=== PATIENT | female | born 1925 | race Caucasian/White ===

== ENCOUNTER 2016-07-25 07:01 | Inpatient (IN) | payer OTHER, MEDICARE ==
[~2016-07-25] VITALS: Ht 165.1 cm; Wt 54.4 kg
[~2016-07-25 07:01] MED LIST: ADVAIR 250-501 EACH INH; ATIVAN1 MG PO; CARDIZEM CD240 M1 PO; DILTIAZEM 24HR180 MG PO; DOCUSATE SODIU100 MG PO; ELIQUIS2.5 M1 PO; LEXAPRO 20MG M20 MG PO; MEDROL DOSEPAK1 PAC PO; OMEPRAZOLE20 M2 PO; PERCOCET 325 MG1 TA2 PO; PREDNISONE10 M2 PO; PRILOSEC10 M2 PO; ROBITUSSIN W/CO10 ML PO; SPIRIVA 18 MCG18 MCG INH; SYNTHROID25 MCG PO; VALSARTAN AND H1 TA1 PO; VITAMIN D1000 IU PO; ZITHROMAX Z-PA250 M1 PO; ZOLOFT50 M1 PO
--- NOTE | 2016-07-25 07:14 | ED UPPER/LOWER EXTREMITY COMPL ---
History of Present Illness General Chief Complaint: Fall Stated Complaint: FALL/AVULSION Source: patient, old records, EMS Exam Limitations: no limitations Vital Signs & Intake/Output Vital Signs & Intake/Output Vital Signs Date Time Temp Pulse Resp B/P B/P Pulse O2 O2 Flow FiO2 Mean Ox Delivery Rate 07/25 1744 99.0 101 18 143/78 95 Room Air 07/25 1404 97.0 78 16 121/76 97 Room Air 07/25 1150 97.2 84 16 141/74 96 Room Air 07/25 0916 98.2 90 18 146/95 98 Room Air 07/25 0705 98.8 78 18 137/69 96 Room Air Allergies Coded Allergies: Sulfa (Sulfonamide Antibiotics) (UNKNOWN 02/03/16) Reconcile Medications Apixaban (Eliquis) 2.5 MG TABLET 1 TAB PO BID ANTICOAG (Reported) Diltiazem HCl (Cardizem Cd) 240 MG CAP.ER.24H 240 MG PO DAILY AFIB Levothyroxine Sodium (Synthroid) 25 MCG TABLET 2 TAB PO DAILY AC THYROID ( Reported) Sertraline HCl (Zoloft) 50 MG TABLET 3 TAB PO DAILY DEPRESSION (Reported) Tiotropium Milfay (Spiriva) 18 MCG CAP.W.DEV 1 CAP INH DAILY COPD (Reported) Valsartan/Hydrochlorothiazide (Valsartan-Hctz 320-12.5 MG Tab) 320 MG-12.5 MG TABLET 1 TAB PO DAILY HEART (Reported) Triage Note: 89 YO FEMALE ANDRE FROM HOME. PT STATES SHE WAS WALKING DOWN THE STAIRS THIS AM AND SLIPPED AND FELL DOWN APPROX 13 STEPS. STATES SHE SCRAPED THE FRONT OF HER R UNGER. SKIN NOTED TO BE PEELED OFF OF R UNGER DOWN TO THE BONE. MD TO BEDSIDE FOR EVAL. PT ABLE TO MOVE R FOOT, +PMS TO EXTREMTY. STATES LAST TETANUS SHOT WAS LAST YEAR. BLEEDING CONTROLLED AT THIS TIME. STATES PAIN 3/10 AT THIS TIME. DENIES HEAD STRIKE. STATES TAKES ELIQUIS DAILY. Triage Nurses Notes Reviewed? yes HPI: Patient slipped on wet stairs and fell forward. Patient states that she fell down approximately 4 stairs. Patient denies hitting her head. Patient states that her right unger was caught underneath her and it dried over each stair. There was no loss of consciousness. Patient denies any injury except a deep laceration to her right unger. Patient states that there is a burning pain which she rates as 6 out of 10. There is no radiation. There are no aggravating or mitigating factors. Patient denies any neck pain. There is no blurry vision. There is no nausea or vomiting. There is no wrist or hand pain. Past History Travel History Traveled to [place] past 21 day No Medical History Any Pertinent Medical History? see below for history Neurological: NONE EENT: cataracts Cardiovascular: AFIB, hypertension Respiratory: COPD Gastrointestinal: peptic ulcer disease colonic polyps H. pylori Hepatic: NONE Renal: NONE Musculoskeletal: chronic back pain Psychiatric: NONE Endocrine: hypothyroidism Blood Disorders: NONE Cancer(s): NONE CAR WASH ATTENDANT/Reproductive: NONE Other Medical Hx: Lyme disease, herpes zoster, History of MRSA: No History of VRE: No History of CDIFF: No Pneumonia Vaccine: 03/10/14 Influenza Vaccine: 03/10/14 Surgical History Surgical History: aortic aneurysm repair, tonsils and adenoids, and lumbar disc. laparascopic incisional hernia repair following repair of splenic artery aneurysm tonsillectomy cervical diskectomy varicose vein stripping Psychosocial History Who do you live with Patient/Self Services at Home None What is your primary language Guamanian Tobacco Use: Never used ETOH Use: denies use Illicit Drug Use: denies illicit drug use Family History Family History, If Any: SON, ; Cause: Renal cancer. MOTHER, ; Cause: Uremia. FH: diabetes mellitus FH: HTN (hypertension) SISTER, ; Cause: Uremia. Hx Contributory? No Review of Systems Review of Systems Constitutional: Reports: no symptoms. EENTM: Reports: no symptoms. Respiratory: Reports: no symptoms. Cardiovascular: Reports: no symptoms. Gastrointestinal/Abdominal: Reports: no symptoms. Genitourinary: Reports: no symptoms. Musculoskeletal: Reports: see HPI. Skin: Reports: see HPI. Neurological/Psychological: Reports: no symptoms. Hematologic/Endocrine: Reports: no symptoms. Immunological: Reports: no symptoms. All Other Systems: Reviewed and Negative Physical Exam Physical Exam General Appearance: well developed/nourished, alert, awake, anxious, mild distress Head: atraumatic, normal appearance Eyes: Bilateral: PERRL, EOMI. Ears, Nose, Throat: normal pharynx, normal ENT inspection, hearing grossly normal Neck: normal inspection, supple, full range of motion, no midline tenderness Cardiovascular/Respiratory: normal breath sounds, normal peripheral pulses, no respiratory distress, irregularly irregular Peripheral Pulses: 3+ tibialis posterior (R), 3+ tibialis posterior (L), 3+ dorsalis pedis (R), 3+ dorsalis pedis (L) Gastrointestinal: SOFT, NONTENDER, NONDISTENDED Back: normal inspection, normal range of motion, no vertebral tenderness Shoulder Left: normal range of motion, normal inspection Shoulder Right: normal range of motion, normal inspection Elbow Left: normal range of motion, normal inspection Elbow Right: normal range of motion, normal inspection Hand Left: normal inspection, normal range of motion Hand Right: normal inspection, normal range of motion Leg Right: SEE BELOW Hip Left: normal range of motion, normal inspection Hip Right: normal range of motion, normal inspection Knee Left: normal range of motion, normal inspection Knee Right: normal range of motion, normal inspection Foot Left: normal inspection, normal range of motion Foot Right: normal inspection, normal range of motion Neurologic/Tendon: normal sensation, normal motor functions, normal tendon functions, no evidence tendon injury Skin: normal color, warm/dry Lymphatic: no anterior cervical tala Comments: Right anterior tibial area shows a large skin flap all the way down to the tendon sheath. The laceration is through the subcutaneous tissue. Her anterior tendon sheath is exposed. There is no defect in the sheath. She has normal movement and sensation distally. Pulses are intact. The anterior tibial area is wide open and exposed. Progress Differential Diagnosis: contusion, fracture, tendon injury Plan of Care: Orders Procedure Date/time Status Regular Diet 07/26 B Active Regular Diet 07/25 D Complete Saline Lock 07/25 1654 Active Misc Message 07/25 1654 Active ED Holding Orders 07/25 1654 Active Vital Signs 07/25 1654 Active Activity/Ambulation 07/25 1654 Active Code Status 07/25 1654 Active Patient Data 07/25 1653 Active Admit to inpatient 07/25 1651 Active Intake & Output 07/25 1632 Active CASE MANAGEMENT CONSULT 07/25 1355 Active PARTIAL THROMBOPLASTIN TIME 07/25 0812 Complete PROTHROMBIN TIME 07/25 0812 Complete COMPREHENSIVE METABOLIC PANEL 07/25 0812 Complete CBC WITHOUT DIFFERENTIAL 07/25 0812 Complete EKG 07/25 0812 Active TYPE & SCREEN (NOT X-MATCH) 07/25 0812 Complete House Staff 07/25 UNK Active Current Medications Sig/Norbert Start time Last Medication Dose Stop Time Status Admin Diltiazem HCl 240 MG DAILY 07/26 1000 AC (Cardizem CD) Hydrochlorothiazide 12.5 MG DAILY 07/26 1000 AC (Hydrodiuril) Losartan Potassium 50 MG DAILY 07/26 1000 AC (Cozaar) Sertraline HCl 150 MG DAILY 07/26 1000 AC (Zoloft) Tiotropium Milfay 1 PUF DAILY 07/26 1000 AC (Spiriva) Levothyroxine Sodium 0.05 MG DAILY AC 07/26 0700 AC (Synthroid) Cefazolin Sodium 1,000 MG IQ8 07/26 0000 AC (Kefzol-Ancef Inj) Apixaban 2.5 MG BID 07/25 2200 AC (Eliquis) Polyethylene Glycol 17 GM DAILY 07/25 1837 AC (Miralax) Bisacodyl 5 MG DAILY 07/25 183 AC (Dulcolax) Morphine Sulfate 2 MG Q4P PRN 07/25 1800 AC 07/25 (Morphine) 1750 Laboratory Tests 07/25/16 0853: PT 14.0 H, INR 1.34 H, APTT 32 07/25/16 0815: Anion Gap 10, Estimated GFR 59 L, BUN/Creatinine Ratio 22.2, Glucose 85, Calcium 8.9, Total Bilirubin 0.8, AST 29, ALT 38, Alkaline Phosphatase 58, Total Protein 5.8 L, Albumin 3.9, Globulin 1.9, Albumin/Globulin Ratio 2.1, CBC w Diff NO MAN DIFF REQ, RBC 4.12 L, MCV 96.1, MCH 32.3 H, RDW 13.1, MPV 9.2, Gran % 64.4, Lymphocytes % 25.2, Monocytes % 7.8, Eosinophils % 2.0, Basophils % 0.6, Absolute Granulocytes 4.6, Absolute Lymphocytes 1.8, Absolute Monocytes 0.6 , Absolute Eosinophils 0.1, Absolute Basophils 0, PUBS MCHC 33.7 Diagnostic Imaging: Viewed by Me: Radiology Read. Discussed w/RAD: Radiology Read. Radiology Impression: PATIENT: ROGER ZAPATA PRESENT AGE: 89 PATIENT ACCOUNT NO: [id number] : [birth year] LOCATION: [facility] ORDERING PHYSICIAN: NALDO BILLINGSLEY MD SERVICE DATE: 07/25/16 EXAM TYPE: RAD - [id number], RIGHT EXAMINATION: XR TIBIA AND FIBULA, RIGHT CLINICAL INFORMATION: Soft tissue injury COMPARISON: None TECHNIQUE: AP and lateral views of the right tibia and fibula were obtained. FINDINGS: Large skin defect of the anterior lower leg with no radiopaque foreign body or underlying osseous abnormality. No fracture. IMPRESSION: Anterior skin defect with no fracture. DICTATED BY: ATTILA HORAN MD DATE/TIME DICTATED:07/25/16747 REGULATORY COMPLIANCE MANAGER:COLMENARES DATE/TIME TRANSCRIBED:07/25/16747 CONFIDENTIAL, DO NOT COPY WITHOUT APPROPRIATE AUTHORIZATION. <Electronically signed in Other Vendor System> SIGNED BY: ATTILA HORAN MD 07/25/16752, PATIENT: ROGER ZAPATA PRESENT AGE: 89 PATIENT ACCOUNT NO: [id number] : [birth year] LOCATION: [facility] ORDERING PHYSICIAN: NALDO BILLINGSLEY MD SERVICE DATE: 07/25/16 EXAM TYPE: CAT - CT HEAD WO IV CONTRAST EXAMINATION: CT HEAD WITHOUT CONTRAST CLINICAL INFORMATION: Fall. On Eloquis. COMPARISON: None TECHNIQUE: Contiguous axial imaging was performed from the skull base to vertex without intravenous administration of contrast. DLP: 566.9 mGy-cm FINDINGS: There is no evidence of acute intracranial hemorrhage or territorial infarction. No abnormal mass effect or midline shift is seen. Li to white matter differentiation is well preserved. No extra-axial fluid collections are identified. The ventricles are normal in size. A few foci of hypoattenuation in the subcortical and periventricular white matter are present, most commonly attributable to chronic microangiopathic changes. Calcific atherosclerosis is present within the cavernous and supraclinoid segments of the internal carotid arteries. The osseous structures and soft tissues are normal. A trace amount of dependent mucus is present within the sphenoid sinus. Paranasal sinuses are otherwise clear. Mastoid air cells are clear. IMPRESSION: No acute intracranial pathology. Mild white matter disease, most compatible with chronic microangiopathic changes. DICTATED BY: LUDA MAX MD DATE/TIME DICTATED:07/25 REGULATORY COMPLIANCE MANAGER:COLMENARES DATE/TIME TRANSCRIBED:07/25/16754 CONFIDENTIAL, DO NOT COPY WITHOUT APPROPRIATE AUTHORIZATION. <Electronically signed in Other Vendor System> SIGNED BY: LUDA MAX MD 07/25/16 0809 Comments: Discussed with Dr. Calderon. Surgical PA will evaluate the patient. Patient is going to require an extensive washout Dr. Calderon is unavailable to take her to the operating room until this evening and requests plastics consultation. Dr. Willis has been consult it and he will see her between 12 and 12:30 today. Departure Departure Disposition: STILL A PATIENT Condition: Stable Clinical Impression Primary Impression: Intractable pain Secondary Impressions: Gait instability, Leg laceration Referrals: JULI CALDERON MD (PCP/Family) Departure Forms: Customer Survey General Discharge Information Admission Note Spoke With: ROHAN WALKER M.D Documentation of Exam: Documentation of any treatments & extenuating circumstances including Concerns Regarding Discharge (functional status, medication knowledge or non-compliance, living conditions, etc.) that warrant an admission rather than observation: [ Parenteral pain control, IV antibiotics, physical therapy, anticipate short-term rehabilitation] Critical Care Note Critical Care Note Critical Care Time: mins: (30 min)
--- NOTE | 2016-07-25 07:14 | NUR ---
89 YO FEMALE BIBA FROM HOME. PT STATES SHE WAS WALKING DOWN THE STAIRS THIS AM AND SLIPPED AND FELL DOWN APPROX 13 STEPS. STATES SHE SCRAPED THE FRONT OF HER R EWING. SKIN NOTED TO BE PEELED OFF OF R EWING DOWN TO THE BONE. MD TO BEDSIDE FOR EVAL. PT ABLE TO MOVE R FOOT, +PMS TO EXTREMTY. STATES LAST TETANUS SHOT WAS LAST YEAR. BLEEDING CONTROLLED AT THIS TIME. STATES PAIN 3/10 AT THIS TIME. DENIES HEAD STRIKE. STATES TAKES ELIQUIS DAILY.
--- NOTE | 2016-07-25 07:23 | NUR ---
IV EST. PT TO XRAY VIA STRETCHER AT THIS TIME
--- NOTE | 2016-07-25 07:53 | RADIOLOGY REPORT ---
EXAMINATION: XR TIBIA AND FIBULA, RIGHT CLINICAL INFORMATION: Soft tissue injury COMPARISON: None TECHNIQUE: AP and lateral views of the right tibia and fibula were obtained. FINDINGS: Large skin defect of the anterior lower leg with no radiopaque foreign body or underlying osseous abnormality. No fracture. IMPRESSION: Anterior skin defect with no fracture.
--- NOTE | 2016-07-25 08:02 | NUR ---
PT MEDICATED PER EMAR AT THIS TIME WITH MORPHINE AND CEFAZOLIN
--- NOTE | 2016-07-25 08:09 | CT SCAN REPORT ---
EXAMINATION: CT HEAD WITHOUT CONTRAST CLINICAL INFORMATION: Fall. On Eloquis. COMPARISON: None TECHNIQUE: Contiguous axial imaging was performed from the skull base to vertex without intravenous administration of contrast. DLP: 566.9 mGy-cm FINDINGS: There is no evidence of acute intracranial hemorrhage or territorial infarction. No abnormal mass effect or midline shift is seen. Li to white matter differentiation is well preserved. No extra-axial fluid collections are identified. The ventricles are normal in size. A few foci of hypoattenuation in the subcortical and periventricular white matter are present, most commonly attributable to chronic microangiopathic changes. Calcific atherosclerosis is present within the cavernous and supraclinoid segments of the internal carotid arteries. The osseous structures and soft tissues are normal. A trace amount of dependent mucus is present within the sphenoid sinus. Paranasal sinuses are otherwise clear. Mastoid air cells are clear. IMPRESSION: No acute intracranial pathology. Mild white matter disease, most compatible with chronic microangiopathic changes.
--- NOTE | 2016-07-25 08:09 | NUR ---
SURGICAL PA AT BEDSIDE FOR EVAL
[2016-07-25 08:27] LABS: ABSOLUTE BASOPHIL COUNT 0 /CUMM (0.0-0.2); ABSOLUTE EOSINOPHIL COUNT 0.1 /CUMM (0.0-0.7); ABSOLUTE GRANULOCYTE CT 4.6 /CUMM (1.4-6.5); ABSOLUTE LYMPH COUNT 1.8 /CUMM (1.2-3.4); ABSOLUTE MONOCYTE COUNT 0.6 /CUMM (0.10-0.60); BASOPHIL % 0.6 % (0.0-2.0); GRANULOCYTE % 64.4 % (42.2-75.2); HEMATOCRIT 39.6 % (37-47); MEAN CORPUSCULAR HGB 32.3 PG (27.0-31.0); MEAN CORPUSCULAR HGB CONC 33.7 G/DL (33.0-37.0); MEAN CORPUSCULAR VOLUME 96.1 FL (81.0-99.0); MEAN PLATELET VOLUME 9.2 FL (7.4-10.4); PLATELET COUNT 186 /CUMM (130-400); RBC DISTRIBUTION WIDTH 13.1 % (11.5-14.5); RED BLOOD CELL CT 4.12 /CUMM (4.20-5.40); WHITE BLOOD CELL COUNT 7.2 /CUMM (4.8-10.8)
--- NOTE | 2016-07-25 08:40 | NUR ---
PT REMAINS RESTING COMFROBTLY ON STRETCHER, OFFERS NO COMPLAINTS AT THIS TIME. PT AWARE SHE WILL GO TO THE OR AT SOME POINT TODAY. Brenda EWING REMAINS COVERED WITH GAUZE AT THIS TIME.
[2016-07-25] MEDS ORDERED: VALSARTAN-HCTZ1 EAC4 PO (09:13)
[2016-07-25 09:24] LABS: PTT 32 SEC (25-37)
--- NOTE | 2016-07-25 09:46 | NUR ---
PT SLEEPING ON STRETCHER AT THIS TIME, REG RESP RATE NOTED.
--- NOTE | 2016-07-25 10:16 | NUR ---
THIS RN AND MATT Og RN AT BEDSIDE TO IRRIGATE WOUND, PT TOLERATED FAIRLY WELL WITH SOME PAIN. TELFA AND ABD PAD DRESSING PLACED. PT MEDICATED BY MATT Og RN PRIOR TO PROCEDURE.
--- NOTE | 2016-07-25 11:50 | NUR ---
REPORT RECIEVED AND CARE OF PT ASSUMED, PT RESTING ON STRETCHER, STATES PAIN IS TOLERABLE AT THIS TIME, AWAITING ARRIVAL OF PLASTIC SURGEON AND AWARE OF SAME. REPORTS NO NEEDS AT THIS TIME.
--- NOTE | 2016-07-25 12:26 | NUR ---
DR BILLINGSLEY AWARE THAT PT HAS REQUESTED MORPHINE JUST PRIOR TO PLASTICS ARRIVAL
--- NOTE | 2016-07-25 12:59 | NUR ---
PT MEDICATED WITH MORPHINE PER eMAR AND DR HOU AT BEDSIDE FOR PROCEDURE
--- NOTE | 2016-07-25 13:52 | NUR ---
PER DR HOU, PLAN FOR PO ANTIBIOTICS, PRN PAIN MEDICINE, AND NO WEIGHT BEARING AT HOME. ALSO REQUESTING THAT VISITING NURSES SET UP FOR EVERY OTHER DAY FOR DRESSING CHANGES. CURRENTLY DRESSED WITH XEROFORM, 4X4, ABD AND ORTHOGLASS W BAR WRAP. DR BILLINGSLEY AWARE AND PLANNING FOR CASE MANAGEMENT, PATIENT LIVES ALONE
--- NOTE | 2016-07-25 16:31 | NUR ---
PT SEEN BY CASE MANAGEMENT, TO BE ADMITTED TO HOSPITAL. AWARE OF PLAN, AWAITING BED ASSIGNMENT. EATING LUNCH AT THIS TIME.
--- NOTE | 2016-07-25 17:42 | NUR ---
PT BED ASSIGNMENT 219-2
--- NOTE | 2016-07-25 17:42 | NUR ---
PT AWARE OF BED ASSIGNMENT. REQUESTING PAIN MEDS, MOD PAGED AND PT AWARE AWAITING CALLBACK (NO HOUSE STAFF ASSIGNED). PT HAS BEEN SEEN BY DR WALKER.
--- NOTE | 2016-07-25 17:44 | NUR ---
MOD DECLINES TO ORDER PAIN MEDS, PER MOD RESIDENT IS PAGER#[phone], PAGED AND AWAITING CALLBACK.
--- NOTE | 2016-07-25 17:51 | NUR ---
MEDICATED WITH MORPHINE PER EMAR. AWAITING TRANSFER TO FLOOR, FAMILY AT BEDSIDE.
--- NOTE | 2016-07-25 18:01 | PN- Att Addend ---
Attending Addendum Attending Brief Note Patient is a very pleasant 89-year-old female who is medical history significant for hypertension, atrial fibrillation on anticoagulation with ELiquis and COPD oxygen dependent. She reports that she was in the usual state of health until earlier on today when she sustained a mechanical fall coming down a flight of stairs. She denied any dizziness or palpitations brought to full. She denied any head trauma. She denied any loss of consciousness. She denies any history of frequent falls. She is on bleacher without the use of any assistive device. She'll brought to the emergency room for evaluation where she was found to have extensive soft tissue traumatic injury. According to the evaluation emergency room physician of the time of injury was described as "Right anterior tibial area shows a large skin flap all the way down to the tendon sheath. The laceration is through the subcutaneous tissue. Her anterior tendon sheath is exposed. There is no defect in the sheath. She has normal movement and sensation distally. Pulses are intact. The anterior tibial area is wide open and exposed." Plastic surgeon Dr. Granados was consulted by the ER service. He evaluated the patient in the emergency room. After wound care was done patient was found to have difficulty ambulating safely due to presence of the immobilizing brace placed. A comparable this she was referred to the hospitalist service for physical therapy evaluation pending ability to be safety discharged. On examination she is alert and oriented 3. Physical therapy may be acute distress. She was adequate pain control at present. She has no evidence of head trauma. Heart sounds are irregular with no murmurs. Lungs are clear bilaterally. Abdomen soft, nontender. Her right lower extremity currently has surgical dressing in place. She is able to move all toes. Problems: 1. Status post mechanical fall 2. Avulsion injury right lower extremity. 3. History of atrial fibrillation 4. Hypertension 5. COPD 6. left Shoulder. Plan: -Admit to the inpatient general medical service -Physical therapy evaluation for safe discharge planning. -Patient to be followed up by the plastic surgery service for further wound care recommendations -Pain management with IV Tylenol. May utilize morphine 1 mg every 3 hours for breakthrough pain. -Bilateral regimen to prevent. Inches constipation. -Continue her cardiac as well as her pulmonary regimen. -Pt complains of more left shoulder pain compared to baseline following the fall. She has decreased ROM. She has pain with passiive motion. Obtain left shoulder x-ray.
--- NOTE | 2016-07-25 18:02 | Admission Certification ---
Admission Certification Certification Statement - As attending physician, I certify that at the time of - admission, based on clinical presentation, severity of - symptoms, need for further diagnostic testing and - therapeutic interventions, and risk of adverse outcomes - without in-hospital treatment, in my clinical assessment, - this patient requires an acute hospital stay for a minimum - of two nights or longer. I have also considered psychsocial - factors such as support system, advanced age, financial - issues, cognitive issues, and failed out-patient treatments, - past re-admission history, safety of patient, and lack of - compliance as applicable. Specific rationale supporting this admission is: Patient is unable to be safely discharged home as she is also to ambulate. Anticipate at least 48 hours and hospital while being evaluated by physical therapy service to plan a safe discharge.
--- NOTE | 2016-07-25 18:05 | NUR ---
2 ATTEMPTS TO GIVE REPORT OVER 15 MIN, NO RESPONSE. PER 2NB FLAVORER, BED IS NOT READY; SHOWS CLEAN ON BEDBOARD, NURSING STRATEGIC MARKETING MANAGER STATING BED NEEDS TO BE SWITCHED OUT FOR SPECIALTY MATTRESS WHICH SHOULD ONLY TAKE A FEW MINUTES. ELEMENTARY MATH TUTOR AT BEDSIDE.
[2016-07-25] MEDS ORDERED: SPIRIVA18 MCG INH (18:24)
--- NOTE | 2016-07-25 18:37 | NUR ---
REPORT CALLED TO [facility] ON 2NB, BED IS CLEAN/READY, WILL BOOK TRANSPORT WHEN HOUSE STAFF EVAL COMPLETE.
[2016-07-25 20:00] VITALS: BP 130/82
--- NOTE | 2016-07-25 20:40 | History & Physical ---
CONSUELO RAMIREZ MD 07/25/162034: General Information and HPI MD Statement: I have seen and personally examined ROGER ZAPATA and documented this H&P. The patient is a 89 year old F who presented with a patient stated chief complaint of [Mechanical fall]. Source of Information: patient, old records, EMS Exam Limitations: no limitations History of Present Illness: Patient is a 89-year-old fully functional female with past medical history significant for A. fib (on Eliquis), hypertension, COPD, chronic back pain, hypothyroidism, remote history of peptic ulcer disease H. pylori and colonic polyps presented to the [facility] with chief concern of mechanical fall resulting in right anterior unger injury and laceration. Patient has been in her usual health until today. She was walking downstairs to this a.m. and slipped fell down around 4 stairs, Scarped down to move her right foot. She reports sleeping on a slimy mold, denies any dizziness, lightheadedness, heart racing, shortness of breath before she fell down. She can totally recall the incident, denies head strike, denies lose of consciousness, woke up by herself. She reports bleeding into and duration region for around 45 minutes. Her last fall was 2 years ago, which was mechanical. She reports pain in her right anterior unger region along with increased pain in her left shoulder region. She had a history of DJD of left shoulder, apparently scheduled for left shoulder repair. She has blurry vision, dry cough at baseline especially in the mornings, occasional back pain. She denies any recent infections, headache, abdominal pain, urinary/bowel changes. At baseline she lives by herself, independent and performing activities of daily living, driving, takes a medication by herself. She don't have any home health aide/health services at home. She quit smoking 42 years ago, did smoke for 30 years/Socially consumes wine/ denies drug abuse She follows Dr. muir - baggagemaster, Dr. Abdi - music publicist, Juli Vasquez MD - PCP, Dr. headley - vascular for varicose veins. Allergies/Medications Allergies: Coded Allergies: Sulfa (Sulfonamide Antibiotics) (UNKNOWN 02/03/16) Home Med list Apixaban (Eliquis) 2.5 MG TABLET 1 TAB PO BID ANTICOAG (Reported) Diltiazem HCl (Cardizem Cd) 240 MG CAP.ER.24H 240 MG PO DAILY AFIB Levothyroxine Sodium (Synthroid) 25 MCG TABLET 2 TAB PO DAILY AC THYROID ( Reported) Sertraline HCl (Zoloft) 50 MG TABLET 3 TAB PO DAILY DEPRESSION (Reported) Tiotropium [place] (Spiriva) 18 MCG CAP.W.DEV 1 CAP INH DAILY COPD (Reported) Valsartan/Hydrochlorothiazide (Valsartan-Hctz 320-12.5 MG Tab) 320 MG-12.5 MG TABLET 1 TAB PO DAILY HEART (Reported) Compliance With Home Meds: GOOD Past History Travel History Traveled to [place] past 21 day No Medical History Blood Transfusion Hx: No Neurological: NONE EENT: cataracts Cardiovascular: AFIB, hypertension Respiratory: COPD Gastrointestinal: peptic ulcer disease colonic polyps H. pylori Hepatic: NONE Renal: NONE Musculoskeletal: chronic back pain Psychiatric: NONE Endocrine: hypothyroidism Blood Disorders: NONE Cancer(s): NONE JERKER/Reproductive: NONE Other Medical Hx: Lyme disease, herpes zoster, History of MRSA: No History of VRE: No History of CDIFF: No Isolation History: Standard Pneumonia Vaccine: 03/10/14 Influenza Vaccine: 03/10/14 Surgical History Surgical History: aortic aneurysm repair, tonsils and adenoids, and lumbar disc. laparascopic incisional hernia repair following repair of splenic artery aneurysm tonsillectomy cervical diskectomy varicose vein stripping Past Family/Social History Family History Relations & Conditions if any SON, ; Cause: Renal cancer. MOTHER, ; Cause: Uremia. FH: diabetes mellitus FH: HTN (hypertension) SISTER, ; Cause: Uremia. Psychosocial History Where do you live? Home Who Do You Live With? self Services at Home: None Smoking Status: Former Smoker ETOH Use: denies use Illicit Drug Use: denies illicit drug use Power of Metal Fabrication Supervisor/HCP? yes Name of POA/HCP: evi and elder daughter Functional Ability ADLs Independent: dressing, eating, toileting, bathing. Ambulation: independent IADLs Independent: shopping, housework, finances, food prep, telephone, transportation , medication admin. Review of Systems Review of Systems Constitutional: Reports: see HPI. EENTM: Reports: blurred vision. Respiratory: Reports: cough. GI: Reports: see HPI. Genitourinary: Reports: see HPI. Musculoskeletal: Reports: see HPI. Skin: Reports: see HPI. Exam & Diagnostic Data Last 24 Hrs of Vital Signs/I&O Vital Signs Date Time Temp Pulse Resp B/P B/P Pulse O2 O2 Flow FiO2 Mean Ox Delivery Rate 07/25 2020 95 Room Air 07/25 1744 99.0 101 18 143/78 95 Room Air 07/25 1404 97.0 78 16 121/76 97 Room Air 07/25 1150 97.2 84 16 141/74 96 Room Air 07/25 0916 98.2 90 18 146/95 98 Room Air 07/25 0705 98.8 78 18 137/69 96 Room Air Intake & Output 07/25 1600 07/25 0800 07/25 0000 Intake Total Output Total Balance Patient 58.967 kg Weight Weight Reported by Patient Measurement Method Physical Exam General Appearance Alert, Oriented X3, Cooperative Skin No Rashes, Laceration in the anterior unger region HEENT Atraumatic, PERRLA, EOMI Neck Supple Cardiovascular Normal S1, Normal S2, No Murmurs Lungs Clear to Auscultation, Normal Air Movement Abdomen Normal Bowel Sounds, No Tenderness, Distended Neurological Normal Speech, Normal Tone, Sensation Intact, Cranial Nerves 3-12 NL Extremities No Clubbing, No Cyanosis, 2+ edema present Vascular Normal Pulses, Pulses Symmetrical Body Front and Back (Adult) 1) Laceration of the right anterior unger region Last 24 Hrs of Labs/Nakul: Laboratory Tests 07/25/16 0853: PT 14.0 H, INR 1.34 H, APTT 32 07/25/16 0815: Anion Gap 10, Estimated GFR 59 L, BUN/Creatinine Ratio 22.2, Glucose 85, Calcium 8.9, Total Bilirubin 0.8, AST 29, ALT 38, Alkaline Phosphatase 58, Total Protein 5.8 L, Albumin 3.9, Globulin 1.9, Albumin/Globulin Ratio 2.1, CBC w Diff NO MAN DIFF REQ, RBC 4.12 L, MCV 96.1, MCH 32.3 H, RDW 13.1, MPV 9.2, Gran % 64.4, Lymphocytes % 25.2, Monocytes % 7.8, Eosinophils % 2.0, Basophils % 0.6, Absolute Granulocytes 4.6, Absolute Lymphocytes 1.8, Absolute Monocytes 0.6 , Absolute Eosinophils 0.1, Absolute Basophils 0, PUBS MCHC 33.7 Assessment/Plan Assessment: Ms. Zapata is a 89-year-old female with atrial fibrillation (on Eliquis), COPD (not on home oxygen) presented with right anterior unger laceration secondary to sustained mechanical fall while walking downstairs. She had an extensive right anterior unger injury which was deep through subcutaneous tissue, sparing the tendon sheath. Plastic surgery was consulted from ER and documented this performed skin flap repair with eventual placement of a brace. She denies any head strike/loss of consciousness. CT head to rule out any acute intracranial pathology. ER course Vital signs Tmax of 99, pulse 78, blood pressure 137/69 mmHg, on room air Labs are unremarkable with INR of 1.[address] without any acute intracranial pathology Tibia/fibula x-ray ruled out acute fractures, demonstrates large anterior skin defect. Plan Admitted to general medicine floor Right anterior unger laceration * Underwent skin flap repair with Dr. Willis in ER * Cefazolin 1 g IV every 8 for preventing infections * Local wound care * Close monitoring of H&H in the setting of bleed with Eliquis intake * Pain control with morphine 2 mg IV every 4 * Tramadol * aggressive bowel regimen with Colace, bisacodyl, MiraLAX. * Physical therapy Left shoulder pain * History of degenerative joint disease apparently exacerbated secondary to fall * Scheduled for surgery near future * X ray to rule out fracture * Provide Rice sock as needed * Pain control with morphine 2 mg IV every 4 * Tramadol History of atrial fibrillation * Continue Eliquis 2.5 mg twice a day * Rate control with diltiazem 240 mg daily History of COPD TRC/nebulizers History of hypertension * On losartan/HCTZ at home * Converted to losartan 50 mg and hydrodissected 12.5 mg daily History of depression * Continue home medication sertraline 150 mg daily History of hypothyroidism * Continue levothyroxine DVT prophylaxis * on Eliquis CODE STATUS * DNR/DNI As Ranked By This Provider Problem List: 1. Leg laceration 2. Intractable pain 3. Hypothyroidism 4. Chronic obstructive pulmonary disease 5. Degenerative joint disease of right shoulder 6. Fall Core Measures/Miscellaneous Acute Coronary Syndrome ACS Diagnosis: No Cerebrovascular Accident CVA/TIA Diagnosis: No Congestive Heart Failure CHF Diagnosis: No Venous Thromboembolism VTE Risk Factors: Immobility, paresis No [facility] VTE prophylaxis d/t: No contraindications No VTE Pharm Prophylaxis d/t: No contraindications VTE Diagnosis: No VTE Type: NONE VTE Confirmed by (Test): NONE Severe Sepsis Severe Sepsis Present: No Septic Shock Septic Shock Present: No Miscellaneous Documentation Attending Case Discussed With: ROHAN WALKER M.D Primary Care Physician: YUMIKO HEWITT,JULI Patient sees these Specialists Dr.Chaisson Burnett Level of Patient Care: General Medicine AUGUSTO GILMORE MD 07/25/16 2136: Resident Review Statement Resident Statement: examined this patient, discussed with programming internship, agreed with programming internship, discussed with family, reviewed EMR data (avail) Other Findings: Ms. Zapata is 89-year-old female with past medical history of atrial fibrillation on eliquis, hypertension, COPD, hypothyroidism, chronic back pain who presents after a mechanical fall down a flight of stairs after she slipped on wet mcneill resulting in extensive right anterior tibial injury revealing the tendon sheaths on her Rt tibia. She denies large amount of blood loss, head trauma, loss of consciousness, blurry vision or syncope. She is to able to move her right leg and her only complaint is pain. She is very functional at baseline and is independent of her ADLs. Right Tibia/fibular x-ray shows a large skin defect but no fracture Head CT shows no acute pathology that shows microangiopathic changes Problem list 1. Extensive right anterior tibial laceration following a mechanical fall 2. Atrial fibrillation 3. Hypertension 4. Depression Plan Admit to general medicine floor Start IV cefazolin 1 g every 8 hours to prevent infection Patient is up to date on her Tetanus shot Consult plastic surgery for laceration repair-Already done in the ED Wound care consult Bowel Regimen Resume her important home medication Pain management with Tylenol and morphine Physical therapy evaluation; patient may need short-term rehabilitation Continue eliquis for DVT prophylaxis DNR/DNI
[2016-07-25 22:46] VITALS: BP 157/94
--- NOTE | 2016-07-25 22:47 | Cons- Plastic Surgery ---
General Information and HPI Consulting Request Date of Consult: 07/25/16 Requested By: Dr. Solis Reason for Consult: RLE open wound Source of Information: patient Exam Limitations: no limitations History of Present Illness: 89 yo female s/p fall at home while walking down the stairs sustained avulsion injury of the right lower extremity. Patient admits to taking Eliquis daily. Denies loss of consciousness, paraesthesia, and numbness. Allergies/Medications Allergies: Coded Allergies: Sulfa (Sulfonamide Antibiotics) (UNKNOWN 02/03/16) Home Med List: Apixaban (Eliquis) 2.5 MG TABLET 1 TAB PO BID ANTICOAG (Reported) Diltiazem HCl (Cardizem Cd) 240 MG CAP.ER.24H 240 MG PO DAILY AFIB Levothyroxine Sodium (Synthroid) 25 MCG TABLET 2 TAB PO DAILY AC THYROID ( Reported) Sertraline HCl (Zoloft) 50 MG TABLET 3 TAB PO DAILY DEPRESSION (Reported) Tiotropium [place] (Spiriva) 18 MCG CAP.W.DEV 1 CAP INH DAILY COPD (Reported) Valsartan/Hydrochlorothiazide (Valsartan-Hctz 320-12.5 MG Tab) 320 MG-12.5 MG TABLET 1 TAB PO DAILY HEART (Reported) Current Medications: Current Medications Sig/Norbert Start time Last Medication Dose Route Stop Time Status Admin Acetaminophen 650 MG Q6-PRN PRN 07/25 2145 CAN PO Acetaminophen 650 MG Q6P PRN 07/25 2145 AC PO Apixaban 2.5 MG BID 07/25 2200 AC 07/25 PO 2103 Bisacodyl 5 MG DAILY 07/25 1834 AC PO Cefazolin Sodium 1,000 MG IQ8 07/26 0000 AC IV Cefazolin Sodium 0 .STK-MED ONE 07/25 0804 DC .ROUTE Cefazolin Sodium 1,000 MG ONCE ONE 07/25 0800 DC 07/25 IV 07/25 0801 0802 Diltiazem HCl 240 MG DAILY 07/26 1000 AC PO Docusate Sodium 100 MG DAILY 07/26 1000 AC PO Hydrochlorothiazide 12.5 MG DAILY 07/26 1000 AC PO Hydromorphone HCl 0.6 MG ONCE ONE 07/25 2200 DC 07/25 IV 07/25 2201 2208 Levothyroxine Sodium 0.05 MG DAILY AC 07/26 0700 AC PO Lidocaine/Epinephrine 0 .STK-MED ONE 07/25 1126 DC .ROUTE Losartan Potassium 50 MG DAILY 07/26 1000 AC PO Morphine Sulfate 2 MG Q4P PRN 07/25 1800 AC 07/25 IV 2101 Morphine Sulfate 0 .STK-MED ONE 07/25 1752 DC .ROUTE Morphine Sulfate 2 MG ONCE ONE 07/25 1300 DC / IV 07/25 1301 1303 Morphine Sulfate 0 .STK-MED ONE 07/25 1259 DC .ROUTE Morphine Sulfate 0 .STK-MED ONE 07/25 1000 DC .ROUTE Morphine Sulfate 0 .STK-MED ONE 07/25 0759 DC .ROUTE Morphine Sulfate 2 MG ONCE ONE 07/25 0715 DC 07/25 IV 07/25 0716 0758 Polyethylene Glycol 17 GM AT BEDTIME 07/25 2200 AC 07/25 PO 2204 Polyethylene Glycol 17 GM DAILY 07/25 1837 AC PO Senna/Docusate Sodium 1 TAB AT BEDTIME 07/25 2200 AC 07/25 PO 2208 Sertraline HCl 150 MG DAILY 07/26 1000 AC PO Tiotropium [place] 1 PUF DAILY 07/26 1000 AC INH Tramadol HCl 50 MG Q6P PRN 07/25 2145 AC PO Past History Medical History Blood Transfusion Hx: No Neurological: NONE EENT: cataracts Cardiovascular: AFIB, hypertension Respiratory: COPD Gastrointestinal: peptic ulcer disease colonic polyps H. pylori Hepatic: NONE Renal: NONE Musculoskeletal: chronic back pain Psychiatric: NONE Endocrine: hypothyroidism Blood Disorders: NONE Cancer(s): NONE TEMPORARY ADMINISTRATIVE ASSISTANT/Reproductive: NONE Other Medical Hx: Lyme disease, herpes zoster, Surgical History Pertinent Surgical History: aortic aneurysm repair, tonsils and adenoids, and lumbar disc. laparascopic incisional hernia repair following repair of splenic artery aneurysm tonsillectomy cervical diskectomy varicose vein stripping Family History Relations & Conditions If Any: SON, ; Cause: Renal cancer. MOTHER, ; Cause: Uremia. FH: diabetes mellitus FH: HTN (hypertension) SISTER, ; Cause: Uremia. Psychosocial History Where Do You Live? Home Who Do You Live With? self Services at Home: None Smoking Status: Former Smoker ETOH Use: denies use Illicit Drug Use: denies illicit drug use Power of Tinner Automatic/HCP? yes Name of POA/HCP: evi and elder daughter Functional Ability ADLs Independent: dressing, eating, toileting, bathing. Ambulation: independent IADLs Independent: shopping, housework, finances, food prep, telephone, transportation , medication admin. Exam & Diagnostic Data Vital Signs and I&O Vital Signs Date Time Temp Pulse Resp B/P B/P Pulse O2 O2 Flow FiO2 Mean Ox Delivery Rate 07/25 2020 95 Room Air 07/25 1744 99.0 101 18 143/78 95 Room Air 07/25 1404 97.0 78 16 121/76 97 Room Air 07/25 1150 97.2 84 16 141/74 96 Room Air 07/25 0916 98.2 90 18 146/95 98 Room Air 07/25 0705 98.8 78 18 137/69 96 Room Air Intake & Output 07/25 1600 07/25 0800 07/25 0000 07/24 1600 07/24 0807/24 0000 Intake Total Output Total Balance Patient 130 lb Weight Weight Reported by Patient Measurement Method Physical Exam Extremities: RLE-12 cm avulsion injury, skin flap dusky, exposed anterior tibia, tendon sheath intact, motor, sensory, and vascular exam intact, minimal oozing, tender. Skin: RLE-lower third of leg with skin avulsion Last 24 Hours of Labs: Laboratory Tests 07/25 07/25 0853 0815 Chemistry Sodium (137 - 145 mmol/L) 139 Potassium (3.5 - 5.1 mmol/L) 4.2 Chloride (98 - 107 mmol/L) 102 Carbon Dioxide (22 - 30 mmol/L) 27 Anion Gap (5 - 16) 10 BUN (7 - 17 mg/dL) 20 H Creatinine (0.5 - 1.0 mg/dL) 0.9 Estimated GFR (>60 ml/min) 59 L BUN/Creatinine Ratio (7 - 25 %) 22.2 Glucose (65 - 99 mg/dL) 85 Calcium (8.4 - 10.2 mg/dL) 8.9 Total Bilirubin (0.2 - 1.3 mg/dL) 0.8 AST (14 - 36 U/L) 29 ALT (9 - 52 U/L) 38 Alkaline Phosphatase (<127 U/L) 58 Total Protein (6.3 - 8.2 g/dL) 5.8 L Albumin (3.5 - 5.0 g/dL) 3.9 Globulin (1.9 - 4.2 gm/dL) 1.9 Albumin/Globulin Ratio (1.1 - 2.2 %) 2.1 Coagulation PT (9.4 - 12.5 SEC) 14.0 H INR (0.90 - 1.19) 1.34 H APTT (25 - 37 SEC) 32 Hematology CBC w Diff NO MAN DIFF REQ WBC (4.8 - 10.8 /CUMM) 7.2 RBC (4.20 - 5.40 /CUMM) 4.12 L Hgb (12.0 - 16.0 G/DL) 13.3 Hct (37 - 47 %) 39.6 MCV (81.0 - 99.0 FL) 96.1 MCH (27.0 - 31.0 PG) 32.3 H RDW (11.5 - 14.5 %) 13.1 Plt Count (130 - 400 /CUMM) 186 MPV (7.4 - 10.4 FL) 9.2 Gran % (42.2 - 75.2 %) 64.4 Lymphocytes % (20.5 - 51.1 %) 25.2 Monocytes % (1.7 - 9.3 %) 7.8 Eosinophils % (0 - 5 %) 2.0 Basophils % (0.0 - 2.0 %) 0.6 Absolute Granulocytes (1.4 - 6.5 /CUMM) 4.6 Absolute Lymphocytes (1.2 - 3.4 /CUMM) 1.8 Absolute Monocytes (0.10 - 0.60 /CUMM) 0.6 Absolute Eosinophils (0.0 - 0.7 /CUMM) 0.1 Absolute Basophils (0.0 - 0.2 /CUMM) 0 PUBS MCHC (33.0 - 37.0 G/DL) 33.7 Imaging Results: X-ray RLE: no fractures Assessment/Plan Assessment/Plan RLE open wound with avulsion injury -The procedure, risks, benefits, and alternatives discussed with patient. The risks discussed but not limited included bleeding, infection, hematoma, seroma, pain, scarring, and debridement of skin flap. Knowing these risks the patient agreed to the procedure for repair. -PROCEDURE: 10 cc of 1% lidocaine with epinephrine injected around RLE wound site. 500 cc of Normal saline with hydrogen peroxide used for irrigation. Wound prepped with Betadine and draped. Non-viable tissue debrided. 3-0 Nylon used to loosely reapproximate epidermis in an interrupted fashion. Bacitracin, Xeroform, sterile gauze, Abdominal pads, and posterior leg splint applied. Patient tolerated procedure well. Post-procedure instructions given verbally to patient and ED staff. RLE elevated, PO antibiotics, Pain meds prn, non-weight bearing RLE, change dressing once daily with Xeroform, sterile dressings, follow-up 24- 48hours. Consult Acknowledgment - Thank you for your consult request. Attending MD Review Statement Attending Statement Attending MD Statement: examined this patient, discuss w/resident/PA/TRANSLITERATOR
--- NOTE | 2016-07-26 04:09 | Event Note ---
Event Note Event Note: Patient received 2mg IV morphine at 9pm without relief. Given 1X0.6mg IV dilaudid. As x-ray is backed up this evening, shoulder xray will be done in am.
[2016-07-26 07:15] VITALS: BP 110/78
--- NOTE | 2016-07-26 07:19 | PN- Housestaff ---
JAMES HEWITT,CONSUELO 07/26/16 0718: Subjective Follow-up For: Mechanical fall Avulsion injury of right anterior unger Left shoulder pain Subjective: I saw and examined the patient today morning She reports significant pain in her left shoulder, she claims having a rough night. No fever/chills overnight. Her pain over the right unger is tolerable. No nausea, vomiting, abdominal pain. Review of Systems Constitutional: Reports: see HPI. Comments: ROS negative except the above. Objective Last 24 Hrs of Vital Signs/I&O Vital Signs Date Time Temp Pulse Resp B/P B/P Pulse O2 O2 Flow FiO2 Mean Ox Delivery Rate 07/26 0715 98.6 97 20 110/78 91 Room Air 07/25 2246 98.7 118 18 157/94 94 Room Air 07/25 2021 95 Room Air 07/25 2000 98.7 96 18 130/82 95 Room Air 07/25 1744 99.0 101 18 143/78 95 Room Air 07/25 1404 97.0 78 16 121/76 97 Room Air 07/25 1150 97.2 84 16 141/74 96 Room Air 07/25 0916 98.2 90 18 146/95 98 Room Air Intake & Output 07/26 0800 07/26 0000 07/25 1600 Intake Total 540 Output Total 300 Balance 240 Intake, Oral 540 Number 1 Bowel Movements Output, Urine 300 Patient 54.431 kg Weight Weight Reported by Patient Measurement Method Physical Exam General Appearance: Alert, Oriented X3, Cooperative Skin: No Rashes, No Breakdown, Left anterior unger wound HEENT: Atraumatic Neck: Supple Cardiovascular: Normal S1, Normal S2 Lungs: Clear to Auscultation, Normal Air Movement Abdomen: Normal Bowel Sounds, Soft, No Tenderness Neurological: Normal Speech, Normal Tone, Sensation Intact, Cranial Nerves 3-12 NL Extremities: No Clubbing, No Cyanosis Vascular: Normal Pulses, Pulses Symmetrical Current Medications: Current Medications Sig/Norbert Start time Last Medication Dose Route Stop Time Status Admin Acetaminophen 650 MG Q6-PRN PRN 07/25 2144 CAN PO Acetaminophen 650 MG Q6P PRN 07/25 2144 AC PO Apixaban 2.5 MG BID 07/25 2200 AC 07/25 PO 2103 Bisacodyl 5 MG DAILY 07/25 1834 AC PO Cefazolin Sodium 1,000 MG IQ8 07/26 0000 AC 07/26 IV 0025 Cefazolin Sodium 0 .STK-MED ONE 07/25 0804 DC .ROUTE Cefazolin Sodium 1,000 MG ONCE ONE 07/25 0800 DC 07/25 IV 07/25 0801 0802 Diltiazem HCl 240 MG DAILY 07/26 1000 AC PO Docusate Sodium 100 MG DAILY 07/26 1000 AC PO Hydrochlorothiazide 12.5 MG DAILY 07/26 1000 AC PO Hydromorphone HCl 0.6 MG ONCE ONE 07/25 2200 DC 07/25 IV 07/25 220 220 Levothyroxine Sodium 0.05 MG DAILY AC 07/26 0700 AC 07/26 PO 0633 Lidocaine/Epinephrine 0 .STK-MED ONE 07/25 1126 DC .ROUTE Losartan Potassium 50 MG DAILY 07/26 1000 AC PO Morphine Sulfate 2 MG Q3P PRN 07/25 2330 AC 07/26 IV 0634 Morphine Sulfate 2 MG Q4P PRN 07/25 1800 DC 07/25 IV 2101 Morphine Sulfate 0 .STK-MED ONE 07/25 1752 DC .ROUTE Morphine Sulfate 2 MG ONCE ONE 07/25 1300 DC 07/25 IV 07/25 1301 1303 Morphine Sulfate 0 .STK-MED ONE 07/25 1259 DC .ROUTE Morphine Sulfate 0 .STK-MED ONE 07/25 1000 DC .ROUTE Morphine Sulfate 0 .STK-MED ONE 07/25 0759 DC .ROUTE Polyethylene Glycol 17 GM AT BEDTIME 07/250 AC 07/25 PO 2204 Polyethylene Glycol 17 GM DAILY 07/25 1837 DC PO Senna/Docusate Sodium 1 TAB AT BEDTIME 07/25 220 AC 07/25 PO 2208 Sertraline HCl 150 MG DAILY 07/26 1000 AC PO Tiotropium [place] 1 PUF DAILY 07/26 1000 AC INH Tramadol HCl 50 MG Q6P PRN 07/25 2145 AC PO Last 24 Hrs of Lab/Nakul Results Last 24 Hrs of Labs/Mics: Laboratory Tests 07/26/16 0631: Anion Gap 7, Estimated GFR 59 L, BUN/Creatinine Ratio 18.9, CBC w Diff NO MAN DIFF REQ, RBC 3.85 L, MCV 95.8, MCH 32.4 H, RDW 13.1, MPV 9.1, Gran % 72.8, Lymphocytes % 15.1 L, Monocytes % 10.9 H, Eosinophils % 0.8, Basophils % 0.4, Absolute Granulocytes 6.2, Absolute Lymphocytes 1.3, Absolute Monocytes 0.9 H, Absolute Eosinophils 0.1, Absolute Basophils 0, PUBS MCHC 33.8 Lines/Diet/Fluids Lines: peripheral lines Assessment/Plan Assessment: Ms. Washington is a 89-year-old female with atrial fibrillation (on Eliquis), COPD (not on home oxygen) presented with right anterior unger laceration secondary to sustained mechanical fall while walking downstairs. She had an extensive right anterior unger injury which was deep through subcutaneous tissue, sparing the tendon sheath. Plastic surgery was consulted from ER and documented this performed skin flap repair with eventual placement of a brace. She denies any head strike/loss of consciousness. CT head to rule out any acute intracranial pathology. Imaging Head CT without any acute intracranial pathology Tibia/fibula x-ray ruled out acute fractures, demonstrates large anterior skin defect. Plan Admitted to general medicine floor Right anterior unger laceration * washed and repaired the open wound yesterday --- Changed dressing today. * Needs dressing changes with bacitracin, xeroform, splintting in place for 3- 5days. * Suggested elevation of leg, nonweightbearing, no dorsiflexion atleast till friday. * Cefazolin converted to keflex today - for atleast 5-7days. * No weight bearing on RLE, local wound care with dressing changes daily. * Close monitoring of H&H in the setting of bleed with Eliquis intake - 12.5/ 36.9 today * Pain control with Dilaudid 0.6mg IV Q4 and tramadol for pain * aggressive bowel regimen with Colace, bisacodyl, MiraLAX. * Physical therapy suggested STR as she had impaired functional mobility from baseline. * Follow up with in a week. Left shoulder pain * History of degenerative joint disease apparently exacerbated secondary to fall * Scheduled for surgery near future * X ray to ruled out fracture -- if pain persists needs further evaluation with MRI, however Machine is not working till friday. * Provide Rice sock as needed History of atrial fibrillation * Continue Eliquis 2.5 mg twice a day * Rate control with diltiazem 240 mg daily History of COPD TRC/nebulizers History of hypertension * On losartan/HCTZ at home * Converted to losartan 50 mg and hydrodissected 12.5 mg daily History of depression * Continue home medication sertraline 150 mg daily History of hypothyroidism * Continue levothyroxine * check TSH and freeT4. DVT prophylaxis * on Eliquis CODE STATUS * DNR/DNI Problem List: 1. Chronic obstructive pulmonary disease 2. Leg laceration 3. Hypothyroidism 4. Degenerative joint disease of right shoulder Pain Ratin Pain Location: left shoulder Pain Goal: Pain 4 or less Pain Plan: tylenol prn Dilaudid Tramadol Tomorrow's Labs & Rationales: cbc to monitor H&H DENISE HEWITTKRYSTYNAMichael 07/26/16 1352: Attending MD Review Statement Attending Statement Attending MD Statement: examined this patient, discuss w/resident/PA/VISUAL INSPECTOR, agreed w/resident/PA/VISUAL INSPECTOR, reviewed EMR data (avail), discussed with nursing, discussed with case mgmt, amended to note Attending Assessment/Plan: Patient seen and examined. Lying in bed complaining of pain left shoulder. Denies pain right lower extremity. She is afebrile hemodynamically stable. On examination she has intact dressing over the right leg. Range of motion remains limited left shoulder. Contusive have tenderness on exam. There is no ecchymotic area over the left shoulder. There is no open wound. Problems: 1. Status post mechanical fall 2. Avulsion injury right lower extremity. 3. History of atrial fibrillation 4. Hypertension 5. COPD 6. Left shoulder pain. Plan: -Transition to by mouth Keflex. Follow-up with the plastic surgery service regarding antibiotic duration and further wound care recommendations. -Continue current regimen for pain control. - X-ray of the left shoulder shows severe degenerative joint disease. Due to her increased pain and the recent trauma will obtain MRI as recommended. After evaluating results consider orthopedic consultation. -Physical therapy as tolerated. Anticipate discharge over the weekend if cleared by the plastic surgery service.
[2016-07-26 08:11] LABS: ABSOLUTE BASOPHIL COUNT 0 /CUMM (0.0-0.2); ABSOLUTE EOSINOPHIL COUNT 0.1 /CUMM (0.0-0.7); ABSOLUTE GRANULOCYTE CT 6.2 /CUMM (1.4-6.5); ABSOLUTE LYMPH COUNT 1.3 /CUMM (1.2-3.4); ABSOLUTE MONOCYTE COUNT 0.9 /CUMM (0.10-0.60); BASOPHIL % 0.4 % (0.0-2.0); EOSINOPHIL % 0.8 % (0-5); GRANULOCYTE % 72.8 % (42.2-75.2); HEMATOCRIT 36.9 % (37-47); MEAN CORPUSCULAR HGB 32.4 PG (27.0-31.0); MEAN CORPUSCULAR HGB CONC 33.8 G/DL (33.0-37.0); MEAN CORPUSCULAR VOLUME 95.8 FL (81.0-99.0); MEAN PLATELET VOLUME 9.1 FL (7.4-10.4); PLATELET COUNT 166 /CUMM (130-400); RBC DISTRIBUTION WIDTH 13.1 % (11.5-14.5); RED BLOOD CELL CT 3.85 /CUMM (4.20-5.40); WHITE BLOOD CELL COUNT 8.5 /CUMM (4.8-10.8)
--- NOTE | 2016-07-26 09:24 | NUR ---
patient c/o 10/ pain left shoulder at 0730, md walker aware, into see patient and ordered xray as well as changed morphine to dilaudid as morphine does not help patient. dilaudid one time dose given prior to going for xray, will monitor as appropriate.
--- NOTE | 2016-07-26 12:05 | RADIOLOGY REPORT ---
EXAMINATION: XR SHOULDER, LEFT CLINICAL INFORMATION: Left shoulder pain. Evaluate for fracture. COMPARISON: Chest x-ray dated 02/08/2016. CT scan of the chest dated 10/13/2014 and 03/14/2014 and 02/01/2013. TECHNIQUE: 3 views of the left shoulder. FINDINGS: Diffuse osteopenia. No acute fracture or dislocation. 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 The prior CT scans of the chest, which partially included the left shoulder joint had shown no definite joint calcifications and the CT scan of the chest from 02/01/2013 had shown some amorphous calcific densities in the region of the infraspinatus tendon. Findings have likely progressed since that exam. There is slight inferior subluxation of the humeral head and moderate spurring of the inferior humeral margin is seen. Included left ribs are intact. There may be an old healed fracture deformity of the posterior lateral left eighth rib. IMPRESSION: 1. Diffuse osteopenia. No acute fracture or dislocation. 2. Moderate degenerative changes in the glenohumeral joint. 3. 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 Calcifications appear to have increased compared to prior CT scans of the chest, which partially included the left shoulder joint. Given the patient's left shoulder pain, consider further assessment with MRI scan of the left shoulder.
--- NOTE | 2016-07-26 12:10 | Patient Discharge Instructions ---
Discharge Instructions General Discharge Information You were seen/treated for: Mechanical fall Knee avulsion injury Left shoulder pain Other wound care: -Local wound care with Bacitacin, Xeroform, ABD pads, Kerlix, posterior leg splint daily Special Instructions: Please follow up with Dr. tolliver in a week. Please follow up with Dr. muir in a week. Please follow up with in one week- call for an appointment. Please use incentive spirometry (breathing exercise) regularly even after discharge. You can do it every hour as tolerated. Please return to emergency if symptoms worsen. Diet Continue normal diet: Yes Recommended Diet: Heart Healthy Activity Full Activity/No Limits: No Activity Self Limited: Yes Other activity limits: Non weight bearing to right lower extremity until FridayJuly 29, then as tolerated Right lower extremity elevation while not ambulating Acute Coronary Syndrome Inclusion Criteria At DC or during hospital stay patient has or had the following: ACS DIAGNOSIS No Discharge Core Measures Meds if any: Prescribed or Continued at Discharge Meds if any: NOT Prescribed or Continued at Discharge Congestive Heart Failure Inclusion Criteria At DC or during hospital stay patient has or had the following: CHF DIAGNOSIS No Discharge Core Measures Meds if any: Prescribed or Continued at Discharge Meds if any: NOT Prescribed or Continued at Discharge Cerebrovascular accident Inclusion Criteria At DC or during hospital stay patient has or had the following: CVA/TIA Diagnosis No Discharge Core Measures Meds if any: Prescribed or Continued at Discharge Meds if any: NOT Prescribed or Continued at Discharge Venous thromboembolism Inclusion Criteria VTE Diagnosis No VTE Type NONE VTE Confirmed by (Test) NONE Discharge Core Measures - Per Current guidelines, there needs to be overlap - treatment for the first 5 days of Warfarin therapy. - If discharged on Warfarin prior to 5 days of - overlap therapy, the patient will need to be - assessed for post discharge needs including - *Post discharge parental anticoagulation - *Warfarin and/or parental anticoagulation education - *Follow up date to check INR post discharge At least 5 days overlap therapy as Inpatient No Meds if any: Prescribed or Continued at Discharge Note: Overlap Therapy is Warfarin and Anticoagulant Meds if any: NOT Prescribed or Continued at Discharge
[2016-07-26 14:35] VITALS: BP 134/88
--- NOTE | 2016-07-26 19:53 | PN- Plastic Surgery ---
Surgical Brief Attending Note Brief Attending Note: Patient admitted yesterday s/p RLE degloving injury lacertion repair. No event overnight. AVSS RLE: Proximal third of skin flap with mild congestion, moderate swelling, non- tender, sutures in place A/P: 89 yo s/p fall sustaining degloving injury of RLE requiring washout and repair -Local wound care with Bacitacin, Xeroform, Abd pads, Kerlix, posterior leg splint daily -Non-weight bearing RLE until July 29 -RLE elevation -Antibiotics for 7 days -F/U 1 week after discharge -Discussed with patient, nursing, and medical staff
[2016-07-26 21:40] VITALS: BP 116/54
[2016-07-27 06:53] VITALS: BP 112/66
[2016-07-27 08:22] LABS: ABSOLUTE BASOPHIL COUNT 0 /CUMM (0.0-0.2); ABSOLUTE EOSINOPHIL COUNT 0.1 /CUMM (0.0-0.7); ABSOLUTE LYMPH COUNT 1.7 /CUMM (1.2-3.4); BASOPHIL % 0.3 % (0.0-2.0); EOSINOPHIL % 0.7 % (0-5); GRANULOCYTE % 68.5 % (42.2-75.2); HEMATOCRIT 35.8 % (37-47); MEAN CORPUSCULAR HGB 32.5 PG (27.0-31.0); MEAN CORPUSCULAR HGB CONC 33.3 G/DL (33.0-37.0); MEAN CORPUSCULAR VOLUME 97.6 FL (81.0-99.0); MEAN PLATELET VOLUME 9.1 FL (7.4-10.4); PLATELET COUNT 146 /CUMM (130-400); RBC DISTRIBUTION WIDTH 13.2 % (11.5-14.5); RED BLOOD CELL CT 3.66 /CUMM (4.20-5.40); WHITE BLOOD CELL COUNT 8.8 /CUMM (4.8-10.8)
--- NOTE | 2016-07-27 08:49 | PN- Housestaff ---
ROHIT HEWITT,KADEN 07/27/16 0848: Subjective Follow-up For: Mechanical fall Avulsion injury of right anterior unger, s/p plastic surgery Left shoulder pain Subjective: I followed of the patient today. She is resting comfortably in her bed, and since that her pain currently is minimal but does have spikes. Plastic surgeon visited her yesterday evening. And she has been working with physical therapist. Review of Systems Constitutional: Reports: no symptoms. Objective Last 24 Hrs of Vital Signs/I&O Vital Signs Date Time Temp Pulse Resp B/P B/P Pulse O2 O2 Flow FiO2 Mean Ox Delivery Rate 07/27 2229 98.3 87 16 90/52 94 Room Air 07/27 1550 97.9 88 20 100/56 91 Room Air 07/27 0934 112/66 07/27 0838 95 Room Air Room Air 07/27 0653 98.1 73 20 112/66 92 Intake & Output 07/27 1600 07/27 0800 07/27 0000 Intake Total 600 120 240 Output Total 200 500 Balance 600 -80 -260 Intake, Oral 600 120 240 Output, Urine 200 500 Physical Exam General Appearance: Alert, Oriented X3, Cooperative Other Physical Findings: Clinical examination just the same as yesterday's. Degloving injury of RLE, s/p lac repair Current Medications: Current Medications Sig/Norbert Start time Last Medication Dose Route Stop Time Status Admin Acetaminophen 650 MG Q6P PRN 07/25 2145 AC PO Albuterol Sulfate 3 ML DAILY 07/27 1000 AC 07/27 INH 0834 Apixaban 2.5 MG BID 07/25 2200 AC 07/27 PO 2146 Bisacodyl 5 MG DAILY 07/25 1834 AC 07/27 PO 0934 Cephalexin 500 MG Q6 07/26 2359 AC / PO 07/28 2357 1811 Diltiazem HCl 240 MG DAILY 07/26 1000 AC 07/27 PO 0934 Docusate Sodium 100 MG DAILY 07/26 1000 AC 07/27 PO 0934 Hydrochlorothiazide 12.5 MG DAILY 07/26 1000 AC 07/27 PO 0934 Hydromorphone HCl 0.6 MG Q4P PRN 07/26 0900 AC 07/27 IV 2154 Ketorolac 30 MG .STK-MED ONE 07/27 020 DC Tromethamine IM 07/27 0208 Ketorolac 15 MG Q6-PRN PRN 07/26 1215 AC 07/27 Tromethamine IV 0210 Levothyroxine Sodium 0.05 MG DAILY AC 07/26 0700 AC 07/27 PO 0625 Losartan Potassium 50 MG DAILY 07/26 1000 AC 07/27 PO 0934 Polyethylene Glycol 17 GM AT BEDTIME 07/25 2200 AC 07/27 PO 2146 Senna/Docusate Sodium 1 TAB AT BEDTIME 07/25 2200 AC 07/27 PO 2146 Sertraline HCl 150 MG DAILY 07/26 1000 AC 07/27 PO 0933 Tiotropium [place] 1 PUF DAILY 07/26 1000 AC 07/27 INH 0934 Tramadol HCl 50 MG Q6P PRN 07/25 2145 AC 07/27 PO 0946 Last 24 Hrs of Lab/Nakul Results Last 24 Hrs of Labs/Mics: Laboratory Tests 07/27/16624: CBC w Diff NO MAN DIFF REQ, RBC 3.66 L, MCV 97.6, MCH 32.5 H, RDW 13.2, MPV 9.1, Gran % 68.5, Lymphocytes % 19.2 L, Monocytes % 11.3 H, Eosinophils % 0.7, Basophils % 0.3, Absolute Granulocytes 6.0, Absolute Lymphocytes 1.7, Absolute Monocytes 1.0 H, Absolute Eosinophils 0.1, Absolute Basophils 0, PUBS MCHC 33.3 Assessment/Plan Assessment: Ms. Washington is a 89-year-old female with atrial fibrillation (on Eliquis), COPD (not on home oxygen) presented with right anterior unger laceration secondary to sustained mechanical fall while walking downstairs. She had an extensive right anterior unger injury which was deep through subcutaneous tissue, sparing the tendon sheath. Plastic surgery was consulted from ER and documented this performed skin flap repair with eventual placement of a brace. She denies any head strike/loss of consciousness. CT head to rule out any acute intracranial pathology. Imaging Head CT without any acute intracranial pathology Tibia/fibula x-ray ruled out acute fractures, demonstrates large anterior skin defect. Plan Admitted to general medicine floor Right anterior unger laceration, s/p repair by Plastic surgery * repaired the wound, continue dressing suggestions, elevation of leg, nonweight bearing, no dorsiflexion atleast till friday. * Continue keflex today * Close monitoring of H&H in the setting of bleed with Eliquis intake - 12.5/ 36.9 today * Pain control with Dilaudid 0.6mg IV Q4 and tramadol for pain * aggressive bowel regimen with Colace, bisacodyl, MiraLAX. * Physical therapy suggested STR as she had impaired functional mobility from baseline. * Follow up with in a week. Left shoulder pain * History of degenerative joint disease apparently exacerbated secondary to fall * Scheduled for surgery near future * X ray was neagative for any fracture -- if pain persists needs further evaluation with MRI, however MRI Machine is not working till friday. * Provide Rice sock as needed History of atrial fibrillation * Continue Eliquis 2.5 mg twice a day * Rate control with diltiazem 240 mg daily History of COPD TRC/nebulizers History of hypertension * On losartan/HCTZ at home * Converted to losartan 50 mg and hydrodissected 12.5 mg daily History of depression * Continue home medication sertraline 150 mg daily History of hypothyroidism * Continue levothyroxine * check TSH and freeT4. DVT prophylaxis * on Eliquis CODE STATUS * DNR/DNI Problem List: 1. Laceration of skin Pain Ratin Pain Location: leg Pain Goal: Pain 4 or less Pain Plan: prn Tomorrow's Labs & Rationales: LESLY DE LA PAZ MD,SERGEY 07/27/16 1400: Attending MD Review Statement Attending Statement Attending MD Statement: examined this patient, discuss w/resident/PA/CLINICAL ADMINISTRATIVE COORDINATOR, agreed w/resident/PA/CLINICAL ADMINISTRATIVE COORDINATOR, discussed with family, reviewed EMR data (avail), discussed with nursing, discussed with case mgmt, reviewed images, amended to note Attending Assessment/Plan: Patient resting comfortably in bed. Her pain is well controlled now. Seen by Dr. Willis last night. Continue antibiotics and pain management. Can be discharged to rehabilitation tomorrow, with the dressing instructions according to Dr. Willis recommendations.
[2016-07-27] MEDS ORDERED: CEPHALEXIN500 M3 PO (10:04)
[2016-07-27 15:50] VITALS: BP 100/56
[2016-07-27 22:29] VITALS: BP 90/52
[2016-07-28 06:56] VITALS: BP 102/54
[2016-07-28 08:32] LABS: ABSOLUTE BASOPHIL COUNT 0 /CUMM (0.0-0.2); ABSOLUTE EOSINOPHIL COUNT 0.1 /CUMM (0.0-0.7); ABSOLUTE GRANULOCYTE CT 5.3 /CUMM (1.4-6.5); ABSOLUTE LYMPH COUNT 2.2 /CUMM (1.2-3.4); ABSOLUTE MONOCYTE COUNT 0.9 /CUMM (0.10-0.60); BASOPHIL % 0.2 % (0.0-2.0); EOSINOPHIL % 1.4 % (0-5); GRANULOCYTE % 61.7 % (42.2-75.2); HEMATOCRIT 32.6 % (37-47); MEAN CORPUSCULAR HGB 32.9 PG (27.0-31.0); MEAN CORPUSCULAR HGB CONC 33.7 G/DL (33.0-37.0); MEAN CORPUSCULAR VOLUME 97.5 FL (81.0-99.0); MEAN PLATELET VOLUME 9.4 FL (7.4-10.4); PLATELET COUNT 153 /CUMM (130-400); RBC DISTRIBUTION WIDTH 13.2 % (11.5-14.5); RED BLOOD CELL CT 3.34 /CUMM (4.20-5.40); WHITE BLOOD CELL COUNT 8.6 /CUMM (4.8-10.8)
--- NOTE | 2016-07-28 08:45 | PN- Housestaff ---
ROHIT HEWITT,KADEN 07/28/16 0845: Subjective Follow-up For: Mechanical fall Avulsion injury of right anterior unger, s/p plastic surgery Left shoulder pain Subjective: I followed of the patient today. She is resting comfortably in her bed, and since that her pain currently is minimal but does have spikes. She has been working with physical therapist. Review of Systems Constitutional: Reports: no symptoms. Objective Last 24 Hrs of Vital Signs/I&O Vital Signs Date Time Temp Pulse Resp B/P B/P Pulse O2 O2 Flow FiO2 Mean Ox Delivery Rate 07/28 1446 98.1 66 20 100/58 93 Room Air 07/28 1151 80 110/60 07/28 1034 98.3 72 18 88/46 07/28 0811 92 Room Air / 0656 98.2 68 20 102/54 92 / 2229 98.3 87 16 90/52 94 Room Air Intake & Output 07/28 1600 07/28 0800 07/28 0000 Intake Total 120 240 Output Total 300 Balance -180 240 Intake, Oral 120 240 Output, Urine 300 Physical Exam General Appearance: Alert, Oriented X3, Cooperative, No Acute Distress Other Physical Findings: Clinical examination just the same as yesterday's. Degloving injury of RLE, s/p lac repair Current Medications: Current Medications Sig/Norbert Start time Last Medication Dose Route Stop Time Status Admin Acetaminophen 650 MG Q6P PRN 07/25 2145 AC PO Albuterol Sulfate 3 ML DAILY 07/27 1000 AC 07/28 INH 0802 Apixaban 2.5 MG BID 07/25 2200 AC 07/28 PO 1035 Bisacodyl 10 MG ONCE ONE 07/28 1345 DC / LA 07/28 1346 1354 Bisacodyl 5 MG DAILY 07/25 1834 AC 07/28 PO 1034 Cephalexin 500 MG Q6 07/26 2359 AC / PO 07/28 2357 1155 Diltiazem HCl 240 MG DAILY / 1000 AC / PO 1155 Docusate Sodium 100 MG DAILY / 1000 AC 07/28 PO 1035 Hydrochlorothiazide 12.5 MG DAILY / 1000 AC 07/27 PO 0934 Hydromorphone HCl 0.6 MG Q4P PRN 07/26 0900 AC 07/28 IV 0339 Ketorolac 15 MG Q6-PRN PRN 07/26 1215 AC 07/27 [place] 0210 Levothyroxine Sodium 0.05 MG DAILY AC 07/26 0700 AC 07/28 PO 0625 Losartan Potassium 50 MG DAILY 07/26 1000 AC 07/27 PO 0934 Oxycodone/ 2 TAB ONCE ONE 07/28 1345 DC 07/28 Acetaminophen PO 07/28 1346 1356 Polyethylene Glycol 17 GM AT BEDTIME 07/25 2200 AC 07/27 PO 2146 Senna/Docusate Sodium 1 TAB AT BEDTIME 07/25 2200 AC 07/27 PO 2146 Sertraline HCl 150 MG DAILY 07/26 1000 AC 07/28 PO 1035 Sodium Phosphate 1 UNIT ONCE ONE 07/28 1600 DC 07/28 LA 07/28 1601 1646 Tiotropium [place] 1 PUF DAILY 07/26 1000 AC 07/28 INH 1036 Tramadol HCl 50 MG Q6P PRN 07/25 2145 AC 07/28 PO 1159 Last 24 Hrs of Lab/Nakul Results Last 24 Hrs of Labs/Mics: Laboratory Tests 07/28/16 0740: CBC w Diff NO MAN DIFF REQ, RBC 3.34 L, MCV 97.5, MCH 32.9 H, RDW 13.2, MPV 9.4, Gran % 61.7, Lymphocytes % 26.0, Monocytes % 10.7 H, Eosinophils % 1.4, Basophils % 0.2, Absolute Granulocytes 5.3, Absolute Lymphocytes 2.2, Absolute Monocytes 0.9 H, Absolute Eosinophils 0.1, Absolute Basophils 0, PUBS MCHC 33.7 Assessment/Plan Assessment: Ms. Washington is a 89-year-old female with atrial fibrillation (on Eliquis), COPD (not on home oxygen) presented with right anterior unger laceration secondary to sustained mechanical fall while walking downstairs. She had an extensive right anterior unger injury which was deep through subcutaneous tissue, sparing the tendon sheath. Plastic surgery was consulted from ER and documented this performed skin flap repair with eventual placement of a brace. She denies any head strike/loss of consciousness. CT head to rule out any acute intracranial pathology. Imaging Head CT without any acute intracranial pathology Tibia/fibula x-ray ruled out acute fractures, demonstrates large anterior skin defect. Plan Admitted to general medicine floor Right anterior unger laceration, s/p repair by Plastic surgery * repaired the wound, continue dressing suggestions, elevation of leg, nonweight bearing, no dorsiflexion atleast till friday. Continue keflex and DC on oral antibiotics 7 days per surgery. * H&H stable. * Adequate pain control with Dilaudid 0.6mg IV Q4 and tramadol for pain * aggressive bowel regimen with Colace, bisacodyl, MiraLAX. Giving a suppository as well. * Physical therapy suggested STR as she had impaired functional mobility from baseline. * Follow up with in a week. Patient can be discharged to short-term rehabilitation facility today. Left shoulder pain * History of degenerative joint disease apparently exacerbated secondary to fall * Scheduled for surgery near future * X ray was neagative for any fracture -- if pain persists needs further evaluation with MRI, however MRI Machine is not working till friday. * Provide Rice sock as needed History of atrial fibrillation * Continue Eliquis 2.5 mg twice a day * Rate control with diltiazem 240 mg daily History of COPD TRC/nebulizers History of hypertension * On losartan/HCTZ at home * Converted to losartan 50 mg and hydrodissected 12.5 mg daily History of depression * Continue home medication sertraline 150 mg daily History of hypothyroidism * Continue levothyroxine * check TSH and freeT4. DVT prophylaxis * on Eliquis CODE STATUS * DNR/DNI Problem List: 1. Gait instability 2. Laceration of skin 3. Leg laceration Pain Ratin Pain Location: leg Pain Goal: Pain 4 or less Pain Plan: prn meds Tomorrow's Labs & Rationales: - ANA CRISTINA HEWITT,[facility] 07/28/16 1421: Attending MD Review Statement Attending Statement Attending MD Statement: examined this patient, discuss w/resident/PA/TELEPHONE WORKER, agreed w/resident/PA/TELEPHONE WORKER, discussed with family, reviewed EMR data (avail), discussed with nursing, discussed with case mgmt, reviewed images, amended to note Attending Assessment/Plan: Patient resting comfortably in bed. Her pain is well controlled now. Seen by Dr. Willis last night. Continue antibiotics and pain management. One reading of Her blood pressure was 88/46 in the morning, repeat check was 110/60. She did not have any dizziness, weakness, shortness of breath, chest pain or any other symptoms. Encourage by mouth intake and spirometry use. Can be discharged to rehabilitation today. His make sure the recommendations given by Dr. Willis is included in the discharge instructions.
[2016-07-28 11:51] VITALS: BP 110/60
[2016-07-28] MEDS ORDERED: ENDOCET 7.5-321 EACH PO (12:50)
--- NOTE | 2016-07-28 13:09 | Discharge Summary ---
Visit Information Visit Dates Admission Date: 07/25/16 Discharge Date: 07/28/16 Hospital Course Course Attending Physician: ROHAN WALKER M.D Primary Care Physician: JULI CALDERON MD Consulting Request: Consulting Specialty: Plastic Surgery Hospital Course: This is an 89-year-old lady with past medical history significant for hypertension, atrial fibrillation on Eliquis, oxygen dependent COPD. The patient was in her usual state of health until the day of her admission on 07/25 when she sustained a mechanical fall coming down a flight of stairs. He was brought to the emergency room for further evaluation. Vital signs on admission: Vital Signs Date Time Temp Pulse Resp B/P B/P Pulse O2 O2 Flow FiO2 Mean Ox Delivery Rate 07/25 2020 95 Room Air 07/25 1744 99.0 101 18 143/78 95 Room Air 07/25 1404 97.0 78 16 121/76 97 Room Air 07/25 1150 97.2 84 16 141/74 96 Room Air 07/25 0916 98.2 90 18 146/95 98 Room Air 07/25 0705 98.8 78 18 137/69 96 Room Air Pertinent physical exam at the time of admission: According to evaluation of ED physician injury was described as:"Right anterior tibial area shows a large skin flap all the way down to the tendon sheath. The laceration is through the subcutaneous tissue. Her anterior tendon sheath is exposed. There is no defect in the sheath. She has normal movement and sensation distally. Pulses are intact. The anterior tibial area is wide open and exposed." Plastic surgery was consulted in the ED. After wound care was done patient was found to have difficulty ambulating safely due to presence of the immobilizing brace placed. She was referred to the hospitalist service for physical therapy evaluation pending ability to be safety discharged. Pertinent lab data on admission: 07/25/16 0853: PT 14.0 H, INR 1.34 H, APTT 32 07/25/16 0815: Anion Gap 10, Estimated GFR 59 L, BUN/Creatinine Ratio 22.2, Glucose 85, Calcium 8.9, Total Bilirubin 0.8, AST 29, ALT 38, Alkaline Phosphatase 58, Total Protein 5.8 L, Albumin 3.9, Globulin 1.9, Albumin/Globulin Ratio 2.1, CBC w Diff NO MAN DIFF REQ, RBC 4.12 L, MCV 96.1, MCH 32.3 H, RDW 13.1, MPV 9.2, Gran % 64.4, Lymphocytes % 25.2, Monocytes % 7.8, Eosinophils % 2.0, Basophils % 0.6, Absolute Granulocytes 4.6, Absolute Lymphocytes 1.8, Absolute Monocytes 0.6 , Absolute Eosinophils 0.1, Absolute Basophils 0, PUBS MCHC 33.7 Pertinent imaging on admission: Head CT 07/25/2016:No acute intracranial pathology. Mild white matter disease, most compatible with chronic microangiopathic changes. Tibia/fibula x-ray on admission 07/25/2016:FINDINGS: Large skin defect of the anterior lower leg with no radiopaque foreign body or underlying osseous abnormality. No fracture. Impression: Anterior skin defect with no fracture. The patient was admitted to general medicine floor. The following problems were addressed during the course of her hospital stay: #Status post mechanical fall/Avulsion injury right lower extremity: Plastic surgery recommendations were followed during the course of her hospital stay. She received antibiotic therapy with IV cefazolin which was changed to by mouth cephalexin later on; to complete the course upon discharge. Wound care recommendations followed as well; needs local wound care with bacitracin Xeroform ABD pads and Kerlix and posterior leg splint daily. Physical therapy consult was obtained who recommended short-term rehabilitation. * Plastic surgery recommends: Local wound care with Bacitacin, Xeroform, Abd pads, Kerlix, posterior leg splint daily -Non-weight bearing RLE until Friday, July 29 -RLE elevation * Antibiotics for 7 days #Left shoulder pain: Patient reported history of degenerative joint disease, she left shoulder pain was thought to be exacerbated secondary to falls. Shoulder x-ray was performed on 07/26/2016 which showed: Diffuse osteopenia. No acute fracture or dislocation.Moderate degenerative changes in the glenohumeral joint. 3. 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 Calcifications appear to have increased compared to prior CT scans of the chest, which partially included the left shoulder joint. Given the patient's left shoulder pain, consider further assessment with MRI scan of the left shoulder. * Patient's left shoulder pain continued to improve during the course of her hospital stay, consider MRI of the left shoulder if pain persist/worsen. * Patient should follow-up with her orthopedist as outpatient. #History of atrial fibrillation on Eliquis: Was maintained on STRIPE MATCHER medications of Eliquis and diltiazem. H&H was monitored closely and remained stable. Rate remained well controlled. #History of hypertension: Chronic/stable. Patient on home medication of Valsartan/HCTZ which was converted to losartan and hydrochlorothiazide during her hospital stay. Blood pressure remained well controlled. #History of depression: Chronic/stable. Was maintained on STRIPE MATCHER sertraline. #History of hypothyroidism: Was maintained on STRIPE MATCHER levothyroxine. #History of COPD: Chronic/stable Received TRC/nebs #DVT prophylaxis: Patient was maintained on Eliquis. #CODE STATUS: DNI/DNR #CTPMP databased checked on the day of discharge on 07/28/16. Complications: None Allergies: Coded Allergies: Sulfa (Sulfonamide Antibiotics) (UNKNOWN 02/03/16) Significant Procedures: KT HOU MD> 07/25/16 7212 RLE open wound with avulsion injury -The procedure, risks, benefits, and alternatives discussed with patient. The risks discussed but not limited included bleeding, infection, hematoma, seroma, pain, scarring, and debridement of skin flap. Knowing these risks the patient agreed to the procedure for repair. -PROCEDURE: 10 cc of 1% lidocaine with epinephrine injected around RLE wound site. 500 cc of Normal saline with hydrogen peroxide used for irrigation. Wound prepped with Betadine and draped. Non-viable tissue debrided. 3-0 Nylon used to loosely reapproximate epidermis in an interrupted fashion. Bacitracin, Xeroform, sterile gauze, Abdominal pads, and posterior leg splint applied. Patient tolerated procedure well. Post-procedure instructions given verbally to patient and ED staff. RLE elevated, PO antibiotics, Pain meds prn, non-weight bearing RLE, change dressing once daily with Xeroform, sterile dressings, follow-up 24- 48hours. Pertinent Lab Results: Laboratory Tests 07/28 07/27 0740 0625 Hematology CBC w Diff NO MAN DIFF REQ NO MAN DIFF REQ WBC (4.8 - 10.8 /CUMM) 8.6 8.8 RBC (4.20 - 5.40 /CUMM) 3.34 L 3.66 L Hgb (12.0 - 16.0 G/DL) 11.0 L 11.9 L Hct (37 - 47 %) 32.6 L 35.8 L MCV (81.0 - 99.0 FL) 97.5 97.6 MCH (27.0 - 31.0 PG) 32.9 H 32.5 H RDW (11.5 - 14.5 %) 13.2 13.2 Plt Count (130 - 400 /CUMM) 153 146 MPV (7.4 - 10.4 FL) 9.4 9.1 Gran % (42.2 - 75.2 %) 61.7 68.5 Lymphocytes % (20.5 - 51.1 %) 26.0 19.2 L Monocytes % (1.7 - 9.3 %) 10.7 H 11.3 H Eosinophils % (0 - 5 %) 1.4 0.7 Basophils % (0.0 - 2.0 %) 0.2 0.3 Absolute Granulocytes (1.4 - 6.5 /CUMM) 5.3 6.0 Absolute Lymphocytes (1.2 - 3.4 /CUMM) 2.2 1.7 Absolute Monocytes (0.10 - 0.60 /CUMM) 0.9 H 1.0 H Absolute Eosinophils (0.0 - 0.7 /CUMM) 0.1 0.1 Absolute Basophils (0.0 - 0.2 /CUMM) 0 0 PUBS MCHC (33.0 - 37.0 G/DL) 33.7 33.3 06/02 0631 Chemistry Sodium (137 - 145 mmol/L) 135 L Potassium (3.5 - 5.1 mmol/L) 3.6 Chloride (98 - 107 mmol/L) 100 Carbon Dioxide (22 - 30 mmol/L) 28 Anion Gap (5 - 16) 7 BUN (7 - 17 mg/dL) 17 Creatinine (0.5 - 1.0 mg/dL) 0.9 Estimated GFR (>60 ml/min) 59 L BUN/Creatinine Ratio (7 - 25 %) 18.9 Hematology CBC w Diff NO MAN DIFF REQ WBC (4.8 - 10.8 /CUMM) 8.5 RBC (4.20 - 5.40 /CUMM) 3.85 L Hgb (12.0 - 16.0 G/DL) 12.5 Hct (37 - 47 %) 36.9 L MCV (81.0 - 99.0 FL) 95.8 MCH (27.0 - 31.0 PG) 32.4 H RDW (11.5 - 14.5 %) 13.1 Plt Count (130 - 400 /CUMM) 166 MPV (7.4 - 10.4 FL) 9.1 Gran % (42.2 - 75.2 %) 72.8 Lymphocytes % (20.5 - 51.1 %) 15.1 L Monocytes % (1.7 - 9.3 %) 10.9 H Eosinophils % (0 - 5 %) 0.8 Basophils % (0.0 - 2.0 %) 0.4 Absolute Granulocytes (1.4 - 6.5 /CUMM) 6.2 Absolute Lymphocytes (1.2 - 3.4 /CUMM) 1.3 Absolute Monocytes (0.10 - 0.60 /CUMM) 0.9 H Absolute Eosinophils (0.0 - 0.7 /CUMM) 0.1 Absolute Basophils (0.0 - 0.2 /CUMM) 0 PUBS MCHC (33.0 - 37.0 G/DL) 33.8 Disposition Summary Disposition Principal Diagnosis: Status post mechanical fall/Avulsion injury right lower extremity Additional Diagnosis: Atrial fibrillation on Eliquis Hypertension Hypothyroidism COPD Depression Discharge Disposition: SNF Discharge Instructions General Discharge Information Code Status: Do Not Resucitate/Intubat Patient's Diet: Regular Patient's Activity: As tolerated; follow PT recommendations, And plastic surgery recommendations Non weight bearing to right lower extremity until FridayJuly 29, then as tolerated Right lower extremity elevation while not ambulating Follow-Up Instructions/Appts: Please follow up with Dr. calderon in a week. Please follow up with Dr. muir in a week. Please follow up with in one week- call for an appointment. Please use incentive spirometry (breathing exercise) regularly even after discharge. You can do it every hour as tolerated. Please follow-up with your orthopedist as outpatient for further evaluation of your left shoulder pain. Plastic surgery recommendations:-Local wound care with Bacitacin, Xeroform, Abd pads, Kerlix, posterior leg splint daily -Non-weight bearing RLE until July 29 -RLE elevation -Antibiotics for 7 days -F/U 1 week after discharge Please return to emergency if symptoms worsen. Medications at Discharge Discharge Medications: Continue taking these medications: Levothyroxine Sodium (Synthroid) 25 MCG TABLET 2 Tablet ORAL DAILY BEFORE BREAKFAST Sertraline HCl (Zoloft) 50 MG TABLET 3 Tablet ORAL DAILY Apixaban (Eliquis) 2.5 MG TABLET 1 Tablet ORAL TWICE DAILY Comments: Last Taken: 02/07 Time: 9AM Diltiazem HCl (Cardizem Cd) 240 MG CAP.ER.24H 240 Milligram ORAL DAILY Days = 30 Comments: Last Taken: 02/07 Time: 9AM Valsartan/Hydrochlorothiazide (Valsartan-Hctz 320-12.5 MG Tab) 320 MG-12.5 MG TABLET 1 Tablet ORAL DAILY Tiotropium [place] (Spiriva) 18 MCG CAP.W.DEV 1 Capsule Inhale through mouth DAILY Days = 30 Start taking the following new medications: Oxycodone HCl/Acetaminophen (Endocet 7.5-325 MG Tablet) 7.5 MG-325 MG TABLET 1 Tablet ORAL TWICE DAILY as needed for PAIN Qty = 15 No Refills Cephalexin (Cephalexin) 500 MG CAPSULE 1 Tablet ORAL EVERY SIX HOURS Qty = 28 No Refills Instructions: CONTINUE FOR 7 DAYS Copies To: YUMIKO HEWITT,JULI
[2016-07-28 14:46] VITALS: BP 100/58
[2016-07-28 18:06] VITALS: BP 100/58
== END 2016-07-28 18:15 | DRG 581 ==
LOC: ERH 07:01 → ERHI 16:51 → 2NB 16:51 → ENRESERV 17:36 → ENTRNSPT 18:47 → 2NB 19:11 → CMPTRNSPT 19:25 → ENPENDDIS 07-28 12:56 → 2NB 07-28 18:15
PROVIDERS: Emergency Medicine; Internal Medicine; ADMIT Internal Medicine
PROC: 0HDKXZZ Extraction of Right Lower Leg Skin, External Approach (ICD-10-PCS; principal; 2016-07-25)
PROC: 0JQN0ZZ Repair Right Lower Leg Subcutaneous Tissue and Fascia, Open Approach (ICD-10-PCS; principal; 2016-07-25)
DX: S81.811A Laceration without foreign body, right lower leg, initial encounter (principal); I48.91 Unspecified atrial fibrillation; J44.9 Chronic obstructive pulmonary disease, unspecified; R26.9 Unspecified abnormalities of gait and mobility; Z79.01 Long term (current) use of anticoagulants; I10 Essential (primary) hypertension; W10.9XXA Fall (on) (from) unspecified stairs and steps, initial encounter; Y92.009 Unspecified place in unspecified non-institutional (private) residence as the place of occurrence of the external cause; E03.9 Hypothyroidism, unspecified; Z87.891 Personal history of nicotine dependence; Z91.81 History of falling; F32.9 Major depressive disorder, single episode, unspecified; Z66 Do not resuscitate; M19.012 Primary osteoarthritis, left shoulder
CPT/HCPCS: 2NSBP; 36415; 73030-LT; 73590-RT; 82436; 93005; 93010; 96374; 96375; 96376; 97116-GO; 97161-GP; 97530-GO; J0690; J1170; J1885